=== PATIENT | female | born 1965 | race Caucasian/White ===

== ENCOUNTER → 2017-12-16 07:50 | Outpatient (CLI) | payer OTHER ==
[2017-12-16 08:43] LABS: BASOPHILS 0.2 % (0-2); EOSINOPHILS 2.1 % (0-7); HEMATOCRIT 41.2 % (36.0-48.0); HEMOGLOBIN 13.9 g/dL (12-16); IMMATURE GRANULOCYTES 0.1 % (0-5); LYMPHOCYTES 23.4 % (15-50); MCH 31.7 pg (26.0-34.0); MCHC 33.7 g/dL (31.0-37.0); MCV 94.1 fL (80.0-100.0); MEAN PLATELET VOLUME 10.1 fL (7.4-10.4); MONOCYTES 3.3 % (2-11); NEUTROPHILS 70.9 % (40-80); PLATELET COUNT 278 10x3/uL (130-400); RBC 4.38 10x6/uL (4.00-5.40); RDW 12.2 % (11.5-14.5); WBC 9.6 10x3/uL (4.8-10.8)
[2017-12-16 09:09] LABS: ALBUMIN 3.7 g/dL (3.4-5.0); ALKALINE PHOSPHATASE 57 U/L (46-116); ALT (SGPT) 31 U/L (10-68); CALC OSMOLALITY 289 mosm/kg (275-300); CALCIUM 8.9 mg/dL (8.5-10.1); CARBON DIOXIDE 27.7 mmol/L (21.0-32.0); CHLORIDE - SERUM 109 mmol/L (98-107); CREATININE - SERUM 0.7 mg/dL (0.6-1.3); GLUCOSE 96 mg/dL (74-106); POTASSIUM - SERUM 4.5 mmol/L (3.5-5.1); SODIUM 145 mmol/L (136-145); UREA NITROGEN 16 mg/dL (7-18); eGFR NON AFRICAN AMERICAN > 90 mL/min (90-120)
[2017-12-16 09:23] LABS: INR 0.92 (0.85-1.17)
[2017-12-17 09:17] LABS: HEPATITIS C ANTIBODY >11.0 (0.0-0.9)
[2017-12-18 14:24] LABS: HCVGENO - HEP C QUANT HCV Not Detected IU/mL (())
== END | disposition home or self-care (01) ==
LOC: D.US 07:50
PROVIDERS: Internal Medicine Gastroenterology
DX: K29.70 Gastritis, unspecified, without bleeding (principal); K44.9 Diaphragmatic hernia without obstruction or gangrene

== ENCOUNTER → 2017-12-20 08:02 | Outpatient (CLI) | payer OTHER ==
[2017-12-22 12:08] LABS: HBV IU/ML HBV DNA not detected IU/mL (())
== END | disposition home or self-care (01) ==
LOC: D.LAB 08:02
PROVIDERS: Internal Medicine Gastroenterology
DX: B16.9 Acute hepatitis B without delta-agent and without hepatic coma (principal)